=== PATIENT | female | born 1995 | race Caucasian/White ===

== ENCOUNTER 2018-10-01 15:59 | Outpatient (REF) | payer MEDICAID, SELFPAY ==
--- NOTE | 2018-10-01 15:00 | PAPFT_PTH ---
PATIENT: Sandra Julian LOC: [facility] U#:[id number] AGE/SX: 23/F ROOM: RE10/01/[address]: Sunshine Riggs : 1995 BED: DIS: 10/01/2018 SPEC #: [id number] RECD: 10/01/18 17:36 STATUS: TAMEKA REAnahi #: [id number] KIA: 10/01/18 15:[address]: Sunshine Riggs DEPT: [facility] Cytology RECD BY: Katerina Acosta ENTERED: 10/01/18 17:36 SP TYPE: PAPFT REYNA DR: Polina Tissues: 1 - CX/ENDOCX FOR PAP SMEARS Procedures: PAP THIN PREP/[facility] Screening Comments: [id number]
== END 2018-10-01 16:19 ==
LOC: LBN 15:59
PROVIDERS: Visit Provider Obstetrics & Gynecology Gynecology
DX: Z12.4 Encounter for screening for malignant neoplasm of cervix (principal)
CPT/HCPCS: 88142

== ENCOUNTER 2018-10-29 17:25 | Outpatient (REF) | payer MEDICAID, SELFPAY | END 2018-10-29 17:45 | LOC: LBN 17:25 | PROVIDERS: Visit Provider Obstetrics & Gynecology Gynecology | DX: R30.0 Dysuria (principal) | CPT/HCPCS: 87086 ==

== ENCOUNTER 2018-12-04 15:35 | Outpatient (CLI) | payer MEDICAID, SELFPAY ==
[2018-12-04 16:20] LABS: Abs Immature Grans 0.04 k/cumm (0.0-0.09); Absolute Basophil Count 0.01 k/cumm (0.0-0.2); Absolute Eosinophil Count 0.03 k/cumm (0.0-0.7); Absolute Lymphocyte Count 2.32 k/cumm (1.2-3.4); Basophils % 0.1; Eosinophils % 0.3; HCT 37.1 % (36.0-46.0); HGB 12.9 g/dL (12.0-15.5); Immature Grans % 0.4; Lymphocytes % 20.5; Mean Corp. HGB Concentration 34.8 g/dL (32.0-36.0); Mean Corpuscular Hemoglobin 31.5 pg (27.0-33.0); Mean Corpuscular Volume 90.7 fL (80-95); Mean Platelet Volume 9.7 fL (8.0-11.0); Monocytes % 8.1; Neutrophils % 70.6; Platelet Count 269 x1000/uL (130-400); RBC 4.09 m/cumm (4.00-5.20); RBC Distribution Width 11.6 % (11.7-14.6)
[2018-12-04 16:21] LABS: Absolute Monocyte Count 0.92 k/cumm (0.11-0.7); Absolute Neutrophil Count 7.98 k/cumm (1.2-6.7)
[2018-12-04 16:33] LABS: Glucose,1 Hr (Glucola) 89 mg/dL (80-140)
[2018-12-04 17:17] LABS: TSH (W/Ref FT4) 0.13 uIU/mL (0.358-3.74)
[2018-12-04 17:34] LABS: FREE T4 1.17 ng/dL (0.76-1.46)
[2018-12-06 11:03] LABS: HIV-1/2 Ag & Ab Screen Negative (NEGAT)
[2018-12-06 11:16] LABS: Hepatitis B Surface Ag Negative (NEGAT)
[2018-12-06 11:18] LABS: Rubella IgG Ab (UVM) Positive; Syphilis Serology (RPR) Negative (Negative); Varicella IgG Antibody Positive
[2018-12-06 11:29] LABS: Hepatitis C Ab w Rflx HCV PCR Negative (NEGAT)
[2018-12-07 13:10] LABS: Chlamydia Result Positive; GC Result Negative
[2018-12-07 14:34] LABS: Specimen Description CERVIX
== END 2018-12-04 15:55 ==
PROVIDERS: Visit Provider Advanced Practice Midwife
DX: Z34.91 Encounter for supervision of normal pregnancy, unspecified, first trimester (principal); Z11.3 Encounter for screening for infections with a predominantly sexual mode of transmission; Z01.84 Encounter for antibody response examination; Z11.59 Encounter for screening for other viral diseases; Z11.4 Encounter for screening for human immunodeficiency virus [HIV]
CPT/HCPCS: 36415; 80055; 82950; 86787; 86803; 86850; 86900; 86901; 87340; 87389; 87491; 87591; 84439; 84443; 86592; 86762

== ENCOUNTER 2018-12-04 17:57 | Outpatient (REF) | payer MEDICAID, SELFPAY ==
[2018-12-04 18:41] LABS: *AMPHETAMINES SCREEN URINE Negative (Negative); *BARBITURATES SCREEN URINE Negative (Negative); *BENZODIAZEPINES SCREEN URINE Negative (Negative); Cannabinoids THC POSITIVE (Negative); Cocaine Screen,Urine Negative (Negative); METHADONE URINE SCREEN Negative (Negative); OPIATES URINE SCREEN Negative (Negative)
[2018-12-04 18:44] LABS: Tricyclic Antidepressants Negative (Negative)
== END 2018-12-04 18:17 ==
LOC: LBN 17:57
PROVIDERS: Visit Provider Advanced Practice Midwife
DX: Z34.91 Encounter for supervision of normal pregnancy, unspecified, first trimester (principal)
CPT/HCPCS: 80307; 87086

== ENCOUNTER 2019-01-15 13:35 | Outpatient (REF) | payer MEDICAID, SELFPAY ==
[2019-01-16 14:04] LABS: Chlamydia Result Negative; GC Result Negative; Specimen Description URINE
[2019-01-19 09:40] LABS: Buprenorphine Negative; Norbuprenorphine Negative
== END 2019-01-15 13:55 ==
LOC: LBN 13:35
PROVIDERS: Advanced Practice Midwife; Obstetrics & Gynecology Gynecology; Visit Provider Family Medicine
DX: Z11.3 Encounter for screening for infections with a predominantly sexual mode of transmission (principal); D68.59 Other primary thrombophilia; Z34.91 Encounter for supervision of normal pregnancy, unspecified, first trimester; O99.111 Other diseases of the blood and blood-forming organs and certain disorders involving the immune mechanism complicating pregnancy, first trimester
CPT/HCPCS: 80307; 87491; 87591

== ENCOUNTER 2019-02-12 01:12 | Outpatient (CLI) | payer MEDICAID, SELFPAY ==
--- NOTE | 2019-02-12 12:34 | DI.US_ITS ---
Many abnormalities cannot be diagnosed. A normal exam does not exclude a congenital anomaly. Radiology No. LMP: Exam Date: 02/12/19 [facility] wks days on EDC ([facility]) 07/07/19 Confirmed: HISTORY: SURVEY, V34.90 PREDICTED GESTATIONAL AGE NUMBER 19.2 weeks with a range of 18.2 week to 20.2 weeks. 1 Determined by_X__1STUS___LMP___HISTORY Info. pertaining to fetus # PLACENTA PRESENTATION Grade I Cephalic___ Anterior___Posterior_X__ Breech____ Right Left Transverse(head right___ Fundal_X__Low-lying___Previa___ Transverse(head left___ Varying___X___ BIOMETRY AMNIOTIC FLUID BPD: 47 mm 20.0 weeks Normal HC: 180 mm 20.3 weeks AC: 146 mm 19.6 weeks FL: 33 mm 20.2 weeks AMNIOTIC FLUID INDEX >26 WK CRL: mm weeks Cisterna Magna: 5 mm CI: 74 RUQ: LUQ Cerebellum: 1.9 cm EFW: 333 grams 89th Percentile RLQ: LLQ Total: cms Composite AGE= 20.1 wks EDC by US___07/01/19 BIOPHYSICAL PROFILE ANATOMY IDENTIFIED SCORE 0/2 Heart: 4-Chamber__X_Rate:BPM___158__ LVOT: X___ RVOT:____X____ Amniotic Fluid(>2cms)____ Stomach: X__ Kidneys:___X____ Respirations (>30 secs) Bladder: X__ Post. Fossa: X Body Flex/Extension 3 vessel cord:___X____Ventricles: X cord insertion:___X__ Lips:___X_ Extremity Flex/Extension spinal morphology:____X____Nose:X Total Score= Palate:____X___ NS=not seen Please see the OB ultrasound worksheet for complete details.
== END 2019-02-12 01:32 ==
PROVIDERS: Visit Provider Obstetrics & Gynecology Gynecology
DX: Z34.92 Encounter for supervision of normal pregnancy, unspecified, second trimester (principal)
CPT/HCPCS: 76805

== ENCOUNTER 2019-04-29 09:41 | Outpatient (CLI) | payer MEDICAID, SELFPAY ==
[2019-04-29 10:28] LABS: Glucose,1 Hr (Glucola) 120 mg/dL (80-140); HCT 33.2 % (36.0-46.0); HGB 11.3 g/dL (12.0-15.5); Mean Corpuscular Hemoglobin 31.6 pg (27.0-33.0); Mean Corpuscular Volume 92.7 fL (80-95); Mean Platelet Volume 9.4 fL (8.0-11.0); Platelet Count 230 x1000/uL (130-400); RBC 3.58 m/cumm (4.00-5.20); White Blood Cell Count 12.49 k/cumm (4.4-10.8)
[2019-04-29 11:18] LABS: TSH (W/Ref FT4) 0.46 uIU/mL (0.358-3.74)
== END 2019-04-29 10:01 ==
PROVIDERS: Visit Provider Obstetrics & Gynecology Gynecology
DX: Z34.93 Encounter for supervision of normal pregnancy, unspecified, third trimester (principal)
CPT/HCPCS: 36415; 82950; 85027; 84443

== ENCOUNTER 2019-06-05 15:22 | Outpatient (REF) | payer MEDICAID, SELFPAY ==
[2019-06-05 16:51] LABS: *AMPHETAMINES SCREEN URINE Negative (Negative); *BARBITURATES SCREEN URINE Negative (Negative); *BENZODIAZEPINES SCREEN URINE Negative (Negative); Cannabinoids THC POSITIVE (Negative); Cocaine Screen,Urine Negative (Negative); METHADONE URINE SCREEN Negative (Negative); OPIATES URINE SCREEN Negative (Negative)
[2019-06-05 17:02] LABS: Tricyclic Antidepressants Negative (Negative)
[2019-06-11 10:00] LABS: Buprenorphine Negative
== END 2019-06-05 15:42 ==
LOC: LBN 15:22
PROVIDERS: Visit Provider Obstetrics & Gynecology Gynecology
DX: Z34.93 Encounter for supervision of normal pregnancy, unspecified, third trimester (principal); Z36.85 Encounter for antenatal screening for Streptococcus B
CPT/HCPCS: 80307; 87081

== ENCOUNTER 2019-07-04 12:49 | Inpatient (IN) | payer MEDICAID, SELFPAY ==
[2019-07-04] MEDS: miSOPROStol 25 MCG TAB 50 MCG PO ×3 (12:46→21:36)
[2019-07-04 14:10] LABS: HCT 33.5 % (36.0-46.0); HGB 11.5 g/dL (12.0-15.5); Mean Corp. HGB Concentration 34.3 g/dL (32.0-36.0); Mean Corpuscular Hemoglobin 30.5 pg (27.0-33.0); Mean Corpuscular Volume 88.9 fL (80-95); Mean Platelet Volume 9.7 fL (8.0-11.0); Platelet Count 225 x1000/uL (130-400); RBC 3.77 m/cumm (4.00-5.20); RBC Distribution Width 12.4 % (11.7-14.6); White Blood Cell Count 15.14 k/cumm (4.4-10.8)
[2019-07-04 14:25] LABS: INR 0.9 (0.9-1.1)
[2019-07-04] MEDS: Zolpidem 5 MG TAB 10 MG PO (21:35)
[2019-07-05 06:59] LABS: HCT 33.2 % (36.0-46.0); Mean Corp. HGB Concentration 33.1 g/dL (32.0-36.0); Mean Corpuscular Hemoglobin 29.8 pg (27.0-33.0); Mean Platelet Volume 9.6 fL (8.0-11.0); Platelet Count 221 x1000/uL (130-400); RBC 3.69 m/cumm (4.00-5.20); RBC Distribution Width 12.6 % (11.7-14.6); White Blood Cell Count 15.58 k/cumm (4.4-10.8)
[2019-07-05 07:10] LABS: Prothrombin Time 9.5 sec (9.3-11.0)
[2019-07-05] MEDS: Lactated Ringers 1,000 ML 200 ML IV (09:05)
[2019-07-05] MEDS: Penicillin G POT. 5,000,000 UNITS in Normal Saline 100 ML 200 UNITS IVPB (09:06)
[2019-07-05] MEDS: Normal Saline Flush 10 ML SYR IVP (09:09)
[2019-07-05] MEDS: FentaNYL/ROPIvacaine 2 mcg/ml and 0.1% 200 ML CADD Cassette EP ×2 (15:20→15:59)
[2019-07-05] MEDS: Lactated Ringers 1,000 ML 125 ML IV (15:58)
[2019-07-05] MEDS: Penicillin G POT. 3,000,000 UNITS in Normal Saline 50 ML 100 UNITS IVPB ×2 (17:19→20:57)
[2019-07-06] MEDS: Lactated Ringers 1,000 ML 125 ML IV (00:39)
[2019-07-06] MEDS: Penicillin G POT. 3,000,000 UNITS in Normal Saline 50 ML 100 UNITS IVPB ×2 (01:17→05:12)
[2019-07-06] MEDS: FentaNYL/ROPIvacaine 2 mcg/ml and 0.1% 200 ML CADD Cassette EP (05:30)
[2019-07-06] MEDS: Methylergonovine 0.2 MG/ML VIAL (07:33)
--- NOTE | 2019-07-06 07:39 | W.PM.PROGNOT ---
Date of Service Date of service: 07/06/19 Time of Service: 07:43 Subjective Interval history since last seen: Delivery Note. Patient admitted for IOL secondary to thrombophilia and had been on anticoagulation through the pregancy. IOl had been accomplished with pitocin. Second stage of labor with duration of approximatley 1 hour. Delivered a LBF with 8,9 over intact perineum with small 1 cm vaginal laceration on the right side. Placenta delivered intact with 3vc. Mild uterine atony managed with IV pitocin and IM methergine. Laceration repaired with a single stitch of 2-0 chromic. Objective Objective Clinical Data: Intake & Output 07/05/19 07/05/19 07/06/19 11:59 23:59 11:59 Intake Total 1100 / 1100 139.8 / 139.8 Balance 1100 / 1100 139.8 / 139.8 Weight 213 lb 13.574 oz Intake: IV 1100 / 1100 139.8 / 139.8 Laboratory Results WBC 15.14 k/cumm (4.4-10.8) H 07/04/19 13:52 RBC 3.77 m/cumm (4.00-5.20) L 07/04/19 13:52 Hgb 11.5 g/dL (12.0-15.5) L 07/04/19 13:52 Hct 33.5 % (36.0-46.0) L 07/04/19 13:52 MCV 88.9 fL (80-95) 07/04/19 13:52 MCH 30.5 pg (27.0-33.0) 07/04/19 13:52 MCHC 34.3 g/dL (32.0-36.0) 07/04/19 13:52 RDW 12.4 % (11.7-14.6) 07/04/19 13:52 Plt Count 225 x1000/uL (130-400) 07/04/19 13:52 MPV 9.7 fL (8.0-11.0) 07/04/19 13:52 PT 9.5 sec (9.3-11.0) 07/05/19 06:44 INR 1.0 (0.9-1.1) 07/05/19 06:44 Patient ABO/Rh O Positive 07/04/19 13:52 Antibody Screen Negative 07/04/19 13:52
[2019-07-06] MEDS: Acetaminophen 325 MG TAB 650 MG PO ×3 (09:58→19:44)
[2019-07-07] MEDS: Acetaminophen 325 MG TAB 650 MG PO ×2 (02:02→16:24)
--- NOTE | 2019-07-07 11:18 | W.PM.PROGNOT ---
Date of Service Date of service: 07/07/19 Time of Service: 11:18 Assessment and Plan (1) (normal spontaneous vaginal delivery): Current visit: Yes Status: Acute Continue routine care. Plan for discharge home tomorrow. 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 Subjective Interval history since last seen: Doing well today. No pain Minimal lochia. Objective Objective Clinical Data: Vital Signs Pain Level 8 07/07/19 02:02 Intake & Output 07/06/19 07/06/19 07/07/19 11:59 23:59 11:59 Intake Total 139.8 / 2289.8 2150 / 2289.8 Balance 139.8 / 2289.8 2150 / 2289.8 Weight 213 lb 13.574 oz Intake: IV 139.8 / 2289.8 2150 / 2289.8 Laboratory Results WBC 15.14 k/cumm (4.4-10.8) H 07/04/19 13:52 RBC 3.77 m/cumm (4.00-5.20) L 07/04/19 13:52 Hgb 11.5 g/dL (12.0-15.5) L 07/04/19 13:52 Hct 33.5 % (36.0-46.0) L 07/04/19 13:52 MCV 88.9 fL (80-95) 07/04/19 13:52 MCH 30.5 pg (27.0-33.0) 07/04/19 13:52 MCHC 34.3 g/dL (32.0-36.0) 07/04/19 13:52 RDW 12.4 % (11.7-14.6) 07/04/19 13:52 Plt Count 225 x1000/uL (130-400) 07/04/19 13:52 MPV 9.7 fL (8.0-11.0) 07/04/19 13:52 PT 9.5 sec (9.3-11.0) 07/05/19 06:44 INR 1.0 (0.9-1.1) 07/05/19 06:44 Patient ABO/Rh O Positive 07/04/19 13:52 Antibody Screen Negative 07/04/19 13:52
[2019-07-07] MEDS: Enoxaparin 40 MG/0.4 ML SYR SC (12:18)
--- NOTE | 2019-07-08 09:06 | W.PM.PROGNOT ---
Date of Service Date of service: 07/08/19 Time of Service: 09:06 Assessment and Plan (1) (normal spontaneous vaginal delivery): Current visit: Yes Status: Acute Plan for discharge home today. Will continue Lovenox for 6 weeks . We discussed contraception and will schedule for Nexplanon placement at the time of her 6 week visit. 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 Minimal lochia No pain. Desires discharge home. Objective Objective Clinical Data: Vital Signs Pain Level 7 07/07/19 16:24 Laboratory Results WBC 15.14 k/cumm (4.4-10.8) H 07/04/19 13:52 RBC 3.77 m/cumm (4.00-5.20) L 07/04/19 13:52 Hgb 11.5 g/dL (12.0-15.5) L 07/04/19 13:52 Hct 33.5 % (36.0-46.0) L 07/04/19 13:52 MCV 88.9 fL (80-95) 07/04/19 13:52 MCH 30.5 pg (27.0-33.0) 07/04/19 13:52 MCHC 34.3 g/dL (32.0-36.0) 07/04/19 13:52 RDW 12.4 % (11.7-14.6) 07/04/19 13:52 Plt Count 225 x1000/uL (130-400) 07/04/19 13:52 MPV 9.7 fL (8.0-11.0) 07/04/19 13:52 PT 9.5 sec (9.3-11.0) 07/05/19 06:44 INR 1.0 (0.9-1.1) 07/05/19 06:44 Patient ABO/Rh O Positive 07/04/19 13:52 Antibody Screen Negative 07/04/19 13:52
== END 2019-07-08 11:30 | disposition home or self-care (01) | DRG 806 ==
PROVIDERS: Admitting Provider Obstetrics & Gynecology; Visit Provider Obstetrics & Gynecology
DX: O99.12 Other diseases of the blood and blood-forming organs and certain disorders involving the immune mechanism complicating childbirth (principal); D68.59 Other primary thrombophilia; Z37.0 Single live birth; Z3A.40 40 weeks gestation of pregnancy; O71.4 Obstetric high vaginal laceration alone; Z79.01 Long term (current) use of anticoagulants; O99.824 Streptococcus B carrier state complicating childbirth; Z83.2 Family history of diseases of the blood and blood-forming organs and certain disorders involving the immune mechanism
CPT/HCPCS: 36415; 85027; 86850; 86900; 86901; 99226; J1650; NC; 59200; 85610; J2210; J2540; J3490

== ENCOUNTER 2019-08-05 14:40 | Outpatient (REF) | payer MEDICAID, SELFPAY | END 2019-08-05 15:00 | LOC: LBN 14:40 | PROVIDERS: Visit Provider Obstetrics & Gynecology | DX: R30.0 Dysuria (principal) | CPT/HCPCS: 87086 ==

== ENCOUNTER 2019-08-21 12:43 | Outpatient (REF) | payer MEDICAID, SELFPAY | END 2019-08-21 13:03 | LOC: LBN 12:43 | PROVIDERS: Visit Provider Nurse Practitioner Women's Health | DX: R30.0 Dysuria (principal) | CPT/HCPCS: 87086 ==

== ENCOUNTER 2019-10-07 01:15 | Outpatient (CLI) | payer MEDICAID, SELFPAY ==
--- NOTE | 2019-10-07 09:33 | DI.MRI_ITS ---
EXAM: MR LUMBAR SPINE WO CLINICAL HISTORY: Paresthesia of both lower extremities, R20.2. TECHNIQUE: Multiplanar multisequence MRI was performed. COMPARISON: No exams were available for comparison FINDINGS: There is patient motion artifact. The conus medullaris has a normal appearance and location. At L5-S1, there is disc desiccation. There is a small central disc herniation. No significant centr al spinal canal or nerve root compression results. No neural foraminal stenosis is seen. At L4-L5, there is disc desiccation. There is a small annular tear. No significant central spinal c anal or neural foraminal stenosis is present. At L3-L4, no focal disc herniation, central spinal canal or neural foraminal stenosis is present. At L2-L3, no focal disc herniation, central spinal canal or neural foraminal stenosis is present. At L1-L2, there is no focal disc herniation, central spinal canal or neural foraminal stenosis. Marrow signal is within normal limits. Incidental note is made of a 0.7 cm simple cyst in the midpole of the right kidney. IMPRESSION: 1. Small central disc herniation at L5-S1. No central spinal canal or nerve root compression results . 2. Small annular tear at L4-L5. No central spinal canal or neural foraminal stenosis is present.
== END 2019-10-07 01:35 ==
PROVIDERS: Visit Provider Obstetrics & Gynecology
DX: R20.2 Paresthesia of skin (principal); M51.27 Other intervertebral disc displacement, lumbosacral region; M51.37 Other intervertebral disc degeneration, lumbosacral region
CPT/HCPCS: 72148

== ENCOUNTER 2020-06-30 19:16 | Outpatient (REF) | payer MEDICAID, SELFPAY ==
[2020-07-02 14:46] LABS: Chlamydia Result Negative (Negative); GC Result Negative (Negative)
== END 2020-06-30 19:36 ==
LOC: LBN 19:16
PROVIDERS: Visit Provider Obstetrics & Gynecology
DX: Z11.3 Encounter for screening for infections with a predominantly sexual mode of transmission (principal)
CPT/HCPCS: 87491; 87591; 87480; 87510; 87660

== ENCOUNTER 2021-05-20 13:27 | Outpatient (CLI) | payer MEDICAID, SELFPAY ==
[2021-05-20 15:01] LABS: HCG Quant, Pregnancy 658 mIU/mL (1-3)
== END 2021-05-20 13:28 | disposition home or self-care (01) ==
LOC: LBO 05-22 13:29
PROVIDERS: Visit Provider Obstetrics & Gynecology
DX: Z32.01 Encounter for pregnancy test, result positive (principal); O20.0 Threatened abortion
CPT/HCPCS: 36415; 84702

== ENCOUNTER 2021-05-22 13:15 | Outpatient (CLI) | payer MEDICAID, SELFPAY ==
[2021-05-22 13:54] LABS: HCG Quant, Pregnancy 1576 mIU/mL (1-3)
== END 2021-05-22 14:00 | disposition home or self-care (01) ==
LOC: BCD 06-04 10:19 → OBS 06-04 10:19
PROVIDERS: Visit Provider Obstetrics & Gynecology
DX: O20.0 Threatened abortion (principal)
CPT/HCPCS: 36415; 84702

== ENCOUNTER 2021-07-05 03:41 | Outpatient (CLI) | payer MEDICAID, SELFPAY ==
[2021-07-05 15:17] LABS: Kit/Specimen SENT
[2021-07-05 15:25] LABS: Abs Immature Grans 0.04 10^3/uL (0.0-0.06); Absolute Basophil Count 0.02 10^3/uL (0.0-0.2); Absolute Eosinophil Count 0.08 10^3/uL (0.0-0.7); Absolute Lymphocyte Count 2.47 10^3/uL (1.2-3.4); Absolute Monocyte Count 0.76 10^3/uL (0.1-0.8); Absolute Neutrophil Count 7.19 10^3/uL (1.2-6.7); Basophils % 0.2; Eosinophils % 0.8; HCT 36.9 % (36.0-46.0); HGB 12.7 g/dL (11.2-15.7); Immature Grans % 0.4; Lymphocytes % 23.4; MCH 29.9 pg (27.0-33.0); MCHC 34.4 % (32.0-36.0); MCV 86.8 fL (80-95); MPV 9.7 fL (8.0-11.0); Monocytes % 7.2; Nucleated RBC 0 %; Platelet Count 257 10^3/uL (130-400); RBC 4.25 10^6/uL (3.93-5.22); RDW 11.8 % (11.7-14.6); RDW-SD 37.2 fL; WBC 10.56 10^3/uL (4.4-10.8)
[2021-07-05 15:31] LABS: Glucose,1 Hr (Glucola) 120 mg/dL (80-140)
[2021-07-05 15:56] LABS: TSH (W/Ref FT4) 0.03 uIU/mL (0.36-3.74)
[2021-07-05 15:57] LABS: Anion Gap 7.8 mmol/L (3-11); BUN 4 mg/dL (7-18); CO2 26.2 mmol/L (21.0-32.0); CREATININE 0.5 mg/dL (0.55-1.02); Calcium 8.8 mg/dL (8.5-10.1); Chloride 104 mmol/L (98-107); Glucose 116 mg/dL (74-106); Potassium 3.7 mmol/L (3.5-5.1); Sodium 138 mmol/L (136-145)
[2021-07-05 16:18] LABS: FREE T4 1.12 ng/dL (0.76-1.46)
[2021-07-06 09:32] LABS: Hepatitis B Surface Ag Negative (Negative); Hepatitis C Ab w Rflx HCV PCR Negative (Negative)
[2021-07-06 11:15] LABS: Varicella IgG Antibody Positive (See Note)
[2021-07-06 11:17] LABS: Rubella IgG Ab (UVM) Positive (See Note)
[2021-07-06 11:41] LABS: HIV-1/2 Ag & Ab Screen Negative (Negative)
[2021-07-07 12:39] LABS: Syphilis Total Ab w/Reflex Nonreactive (Nonreactive)
== END 2021-07-05 03:42 | disposition home or self-care (01) ==
PROVIDERS: Advanced Practice Midwife; Obstetrics & Gynecology; Visit Provider Advanced Practice Midwife
DX: O99.211 Obesity complicating pregnancy, first trimester (principal); O09.91 Supervision of high risk pregnancy, unspecified, first trimester; D68.59 Other primary thrombophilia; Z79.01 Long term (current) use of anticoagulants; Z11.59 Encounter for screening for other viral diseases; Z11.4 Encounter for screening for human immunodeficiency virus [HIV]; Z01.84 Encounter for antibody response examination
CPT/HCPCS: 80048; 82950; 86787; 86803; 86850; 86900; 86901; 87340; 87389; 84439; 84443; 85025; 86762; 86780

== ENCOUNTER 2021-07-05 19:42 | Outpatient (REF) | payer MEDICAID, SELFPAY ==
[2021-07-05 17:37] LABS: *AMPHETAMINES SCREEN URINE Negative (Negative); *BARBITURATES SCREEN URINE Negative (Negative); *BENZODIAZEPINES SCREEN URINE Negative (Negative); Cannabinoids THC Positive (Negative); Cocaine Screen,Urine Negative (Negative); METHADONE URINE SCREEN Negative (Negative); OPIATES URINE SCREEN Negative (Negative); Tricyclic Antidepressants Negative (Negative)
[2021-07-07 15:21] LABS: Chlamydia Result Negative (Negative); GC Result Negative (Negative)
== END 2021-07-05 19:43 | disposition home or self-care (01) ==
LOC: LBN 19:42
PROVIDERS: Advanced Practice Midwife; Visit Provider Obstetrics & Gynecology
DX: O09.91 Supervision of high risk pregnancy, unspecified, first trimester (principal); N89.8 Other specified noninflammatory disorders of vagina; Z11.3 Encounter for screening for infections with a predominantly sexual mode of transmission
CPT/HCPCS: 80307; 87491; 87591; 87086; 87480; 87510; 87660